=== PATIENT | male | born 1945 | race Caucasian/White ===

== ENCOUNTER 2017-08-15 21:07 | Inpatient (IN) ==
[2017-08-15] MEDS ORDERED: NS 1,000 ML ONE (21:23)
[2017-08-15] MEDS ORDERED: CARDIZEM ONE ×7 (21:29→22:36)
[2017-08-15 21:32] LABS: MANUAL DIFF NEEDED? NO
[2017-08-15] MEDS ORDERED: CARDIZEM IV ONE ×4 (21:32→22:43)
[2017-08-15] MEDS ORDERED: NS 100 ML ONE (21:41)
[2017-08-15] MEDS ORDERED: NS 500 ML ONE (21:55)
[2017-08-15] MEDS ORDERED: NS 1,000 ML IV ONE ×2 (21:58→23:18)
[2017-08-15] MEDS ORDERED: CARDIZEM 100 MG/NS 100 MG/100 ML IVPB IV SCH (21:58)
--- NOTE | 2017-08-15 22:01 | Diag Imaging Result Doc PS360 ---
CHEST-PORTABLE - 08/15/2017 INDICATION: SOB TECHNIQUE: COMPARISON: 06/15/2017 FINDINGS: The lungs are normally expanded and clear. Heart size and mediastinal contours are normal. No pneumothorax or pleural effusion. IMPRESSION: Negative exam. Electronically signed by Mario Blount 08/15/2017 9:59 PM
[2017-08-15] MEDS ORDERED: DUONEB (A & A) INH ONE (22:04)
[2017-08-15 22:09] LABS: BASO% 0.2 % (0.0-0.8); EOS% 0.8 % (0.0-10.0); HEMATOCRIT 42.8 % (42.0-52.0); HEMOGLOBIN 13.2 g/dL (14.0-18.0); IMM GRAN# 0.03 X1000 (0.0-0.04); IMM GRAN% 0.3 % (0.0-0.5); MCH 29.6 PG (27-31); MCHC 30.8 g/dL (33-37); MONO# 1.82 X1000 (0.11-0.59); MONO% 15.3 % (1.7-9.3); MPV 12.9 FL (7.4-10.4); NEUT% 67.4 % (42.2-75.2); PLT 200 X1000 (130-400); RBC 4.46 XMIL (4.7-6.1)
[2017-08-15 22:12] LABS: INR 0.99 (0.86-1.15); PROTIME 13.9 Seconds (12.1-15.5)
[2017-08-15 22:13] LABS: PTT PL 38.6 Seconds (22.6-43.9)
[2017-08-15 22:21] LABS: ALBUMIN 3.9 g/dL (3.5-5.0); CALCIUM 8.9 mg/dL (8.8-10.2); MAGNESIUM 2.2 mg/dL (1.5-2.7); POTASSIUM 3.5 mmol/L (3.5-5.1); TOTAL BILIRUBIN 0.9 mg/dL (0.20-1.00); TOTAL PROTEIN 7.2 g/dL (6.3-8.3)
[2017-08-15] MEDS ORDERED: SOLU-MEDROL IV ONE (22:22)
[2017-08-15] MEDS ORDERED: SOLU-MEDROL ONE (22:25)
--- NOTE | 2017-08-16 00:10 | EKG Report ---
Test Performed on : 08/15/2017 9:26:43 PM Test Reason : CHEST PAIN Blood Pressure : / mmHG Vent. Rate : 161 BPM Atrial Rate : 156 BPM P-R Int : 000 ms QRS Dur : 094 ms QT Int : 264 ms P-R-T Axes : 000 -39 -06 degrees QTc Int : 432 ms Atrial fibrillation. with rapid ventricular response. Left axis deviation Nonspecific ST abnormality Abnormal ECG When compared with ECG of 15-AUG-2017 21:24, (Unconfirmed) No significant change was found Unconfirmed Result
[2017-08-16] MEDS ORDERED: ZOFRAN IV PRN (00:17)
[2017-08-16] MEDS ORDERED: XOPENEX NEB INH PRN (00:17)
[2017-08-16] MEDS ORDERED: TYLENOL PO PRN (00:17)
--- NOTE | 2017-08-16 00:20 | EKG Report ---
Test Performed on : 08/15/2017 10:55:26 PM Test Reason : sob Blood Pressure : / mmHG Vent. Rate : 154 BPM Atrial Rate : 156 BPM P-R Int : 000 ms QRS Dur : 090 ms QT Int : 330 ms P-R-T Axes : 000 -13 053 degrees QTc Int : 528 ms Supraventricular tachycardia. with occasional premature ventricular complexes. Inferior infarct , age undetermined Abnormal ECG When compared with ECG of 15-AUG-2017 22:25, (Unconfirmed) Sinus rhythm. has replaced Atrial fibrillation. Unconfirmed Result
--- NOTE | 2017-08-16 00:20 | EKG Report ---
Test Performed on : 08/15/2017 10:25:53 PM Test Reason : sob Blood Pressure : / mmHG Vent. Rate : 136 BPM Atrial Rate : 153 BPM P-R Int : 000 ms QRS Dur : 094 ms QT Int : 328 ms P-R-T Axes : 000 016 048 degrees QTc Int : 493 ms Atrial fibrillation. with rapid ventricular response. with premature ventricular or aberrantly condu cted complexes. Abnormal ECG When compared with ECG of 15-AUG-2017 21:26, (Unconfirmed) No significant change was found Unconfirmed Result
[2017-08-16] MEDS ORDERED: CARDIZEM 100 MG/NS 100 MG/100 ML IVPB IV SCH (00:47)
[2017-08-16 04:27] LABS: MANUAL DIFF NEEDED? NO
[2017-08-16 04:33] LABS: BASO% 0.1 % (0.0-0.8); HEMOGLOBIN 12.4 g/dL (14.0-18.0); IMM GRAN# 0.02 X1000 (0.0-0.04); IMM GRAN% 0.2 % (0.0-0.5); LYMPH# 0.94 X1000 (1.2-3.4); LYMPH% 10.6 % (20.5-51.1); MCH 29.6 PG (27-31); MCV 95.5 FL (81-99); MONO# 0.37 X1000 (0.11-0.59); MONO% 4.2 % (1.7-9.3); MPV 13.1 FL (7.4-10.4); NEUT% 84.9 % (42.2-75.2); PLT 180 X1000 (130-400); RBC 4.19 XMIL (4.7-6.1)
[2017-08-16 05:33] LABS: BE 6.3 mmoll (-3.0-3.0); BLOOD TYPE ARTERIAL; DRAW SITE L BRACHIAL; METHB 1.2 % (0.0-1.5); O2(CT) 16.4 mL/dL (15.0-23.0); PO2(98.6) 68 mmHg (60-100); SAMPLE BLOOD; SAO2 96.1 % (95.0-100.0); THB 12.6 g/dL (11.5-17.4); pH(98.6) 7.35 (7.35-7.45)
[2017-08-16 05:37] LABS: PCO2(98.6) 61 mmHg (35-45)
[2017-08-16 05:38] LABS: ALLEN TEST NO; MODALITY CANNULA
[2017-08-16] MEDS ORDERED: PRILOSEC PO SCH (07:00)
[2017-08-16] MEDS: ATROVENT NEB INH PRN ×3 (08:04→19:15)
[2017-08-16] MEDS: XOPENEX NEB INH PRN ×3 (08:04→19:15)
[2017-08-16] MEDS ORDERED: TESSALON PO PRN (10:51)
[2017-08-16] MEDS ORDERED: NORCO-7.5 PO PRN (10:51)
[2017-08-16] MEDS: SOLU-MEDROL IV SCH ×2 (11:38→18:26)
[2017-08-16] MEDS: TRICOR PO SCH (11:39)
[2017-08-16] MEDS: CYMBALTA PO SCH (11:39)
[2017-08-16] MEDS: LASIX PO SCH (11:39)
[2017-08-16] MEDS: MOBIC PO SCH (11:39)
[2017-08-16] MEDS: KLOR-CON PO SCH (11:39)
[2017-08-16] MEDS: ROCEPHIN 1 GM in NS 50 ML IV SCH (11:40)
[2017-08-16] MEDS: SYNTHROID PO SCH (11:40)
[2017-08-16] MEDS: XANAX PO SCH ×2 (11:49→20:00)
[2017-08-16] MEDS: BETAPACE PO SCH ×2 (11:49→20:00)
[2017-08-16] MEDS: NEURONTIN PO SCH ×3 (15:13→20:00)
[2017-08-16] MEDS: CARDIZEM PO SCH ×2 (15:14→20:01)
[2017-08-16] MEDS ORDERED: XARELTO PO SCH (17:00)
[2017-08-16 18:21] LABS: URINE CULTURE PL NEEDED? NO
[2017-08-16 18:31] LABS: BILIRUBIN URINE NEGATIVE (NEGATIVE); BLOOD URINE NEGATIVE (NEGATIVE); CLARITY CLEAR (CLEAR); COLOR YELLOW; GLUCOSE URINE NEGATIVE (NEGATIVE); LEUKOCYTES URINE NEGATIVE (NEGATIVE); NITRITE URINE NEGATIVE (NEGATIVE); PH URINE 6.5; PROTEIN URINE NEGATIVE (NEGATIVE); UROBILINOGEN URINE NORMAL
[2017-08-16 18:32] LABS: URINE CAST NONE SEEN /LPF; URINE CRYSTAL NONE SEEN /HPF; URINE EPITHELIAL CELLS <10 /HPF (<10); URINE SOURCE CLEAN CATCH
--- NOTE | 2017-08-16 18:32 | EKG Report ---
Test Performed on : 08/16/2017 3:14:34 PM Test Reason : afib Blood Pressure : / mmHG Vent. Rate : 067 BPM Atrial Rate : 067 BPM P-R Int : 132 ms QRS Dur : 098 ms QT Int : 482 ms P-R-T Axes : 030 033 053 degrees QTc Int : 509 ms Normal sinus rhythm. Prolonged QT Abnormal ECG When compared with ECG of 15-AUG-2017 22:55, premature ventricular complexes. are no longer present Vent. rate has decreased BY 87 BPM Criteria for Inferior infarct are no longer present ST no longer depressed in Anterior leads Unconfirmed Result
--- NOTE | 2017-08-16 18:48 | ECHO REPORT ---
ORDER DATE: 08/16/2017 INTERPRETING PHYSICIAN: Dr. Santana REQUESTING PHYSICIAN: Bran Hernandez MD CLINICAL INDICATIONS: Shortness of breath, dizziness, fatigue. M-MODE MEASUREMENTS: Right ventricle: 3.1 cm. Left ventricle end diastole: 5.8 cm. Left ventricle end systole: 3.6 cm. Posterior wall: 0.9 cm. Interventricular septum: 0.9 cm. Left atrium: 3.8 cm. Aortic root: cm. SUMMARY OF 2-DIMENSIONAL IMAGING: The left ventricular function is normal. Ejection fraction estimated at 69%. The chamber is not dilated. The right ventricle is probably at the upper limits of normal. The atria appear to be also at the upper limits of normal. The aortic valve opens normally. Color flow mapping unremarkable. The mitral valve shows a mild degree of regurgitation. Pulse wave Doppler of mitral inflow is normal. Tissue Doppler of septal and lateral mitral annulus averages 9 cm per second. There is no diastolic dysfunction. The tricuspid valve shows a mild degree of regurgitation. The inferior vena cava is borderline enlarged. Pulmonary pressure estimated at 46-51 mmHg. The pulmonic valve is normal. Color flow mapping unremarkable. IMPRESSION: In summary, this study shows: 1. Normal left ventricular systolic function. Ejection fraction estimated at 69%. 2. Mild degree of mitral, tricuspid, and pulmonic regurgitation. 3. Unremarkable aortic valve. 4. No diastolic dysfunction. 5. Pulmonary pressure of 46-51 mmHg. cc: MD Josette Medley CRNP Xia Tian, MD
[2017-08-16] MEDS ORDERED: LASIX PO SCH (21:00)
[2017-08-16] MEDS ORDERED: CRESTOR PO SCH (21:00)
[2017-08-17] MEDS: SOLU-MEDROL IV SCH ×2 (01:59→12:17)
[2017-08-17] MEDS: BREO ELLIPTA 100/25 MCG INH INH SCH ×2 (04:38→07:43)
[2017-08-17] MEDS: CARDIZEM PO SCH (04:43)
[2017-08-17] MEDS: SYNTHROID PO SCH (06:07)
[2017-08-17] MEDS: XOPENEX NEB INH PRN (06:15)
[2017-08-17] MEDS: ATROVENT NEB INH PRN (06:15)
[2017-08-17 06:53] LABS: MANUAL DIFF NEEDED? YES
[2017-08-17 06:55] LABS: BASO% 0.1 % (0.0-0.8); HEMATOCRIT 39.4 % (42.0-52.0); HEMOGLOBIN 12.2 g/dL (14.0-18.0); IMM GRAN# 0.05 X1000 (0.0-0.04); IMM GRAN% 0.4 % (0.0-0.5); LYMPH# 1.21 X1000 (1.2-3.4); LYMPH% 9.7 % (20.5-51.1); MCH 28.8 PG (27-31); MCV 92.9 FL (81-99); MONO# 0.99 X1000 (0.11-0.59); MONO% 7.9 % (1.7-9.3); NEUT% 81.9 % (42.2-75.2); PLT 258 X1000 (130-400); RBC 4.24 XMIL (4.7-6.1)
[2017-08-17] MEDS ORDERED: PRILOSEC PO SCH (07:00)
[2017-08-17 07:20] LABS: CALCIUM 9.2 mg/dL (8.8-10.2)
[2017-08-17 07:21] LABS: BANDS 4 % (0-1); LYMPHS 12 % (21-51)
[2017-08-17] MEDS: BETAPACE PO SCH (08:52)
[2017-08-17] MEDS: LASIX PO SCH (08:52)
[2017-08-17] MEDS: CYMBALTA PO SCH (08:52)
[2017-08-17] MEDS: NEURONTIN PO SCH ×2 (08:52→12:18)
[2017-08-17] MEDS: KLOR-CON PO SCH (08:53)
[2017-08-17] MEDS: XANAX PO SCH (08:53)
[2017-08-17] MEDS: TRICOR PO SCH (08:53)
[2017-08-17] MEDS: MOBIC PO SCH (08:53)
[2017-08-17] MEDS ORDERED: CARDIZEM CD PO SCH (09:00)
[2017-08-17 11:48] VITALS: BP 98/64
[2017-08-17] MEDS: ROCEPHIN 1 GM in NS 50 ML IV SCH (12:17)
== END 2017-08-17 13:35 | disposition home or self-care (01) ==
LOC: P.ED 21:07 → P.ICU 23:41 → P.MEDSURG 08-16 20:25
PROVIDERS: ADMIT Emergency Medicine; ATTEND Family Medicine